=== PATIENT | male | born 1995 | race Caucasian/White ===

== ENCOUNTER 2023-05-30 23:35 | Emergency (ER) | payer SELFPAY ==
[~2023-05-30] VITALS: Ht 172.7 cm; Wt 113.4 kg
[2023-05-30 23:50] VITALS: BP 125/82; PULSE 86; RESP 18; TEMP 97.6; O2SAT 100
[2023-05-31 00:10] VITALS: BP 129/73; PULSE 78; RESP 17; O2SAT 97
[2023-05-31] MEDS ORDERED: ATA25 PO (00:16)
== END 2023-05-31 00:29 | disposition home or self-care (01) ==
LOC: MED 23:35
DX: R00.2 Palpitations (principal); F41.9 Anxiety disorder, unspecified; Z79.899 Other long term (current) drug therapy
CPT/HCPCS: 93005; 99283